=== PATIENT | female | born 1975 | race Two or more races ===

== ENCOUNTER 2022-10-23 14:15 | Emergency (ER) | payer OTHER ==
[2022-10-23 14:45] VITALS: BP 151/77; PULSE 119; RESP 20; TEMP 100.8; BMI 25.6
[2022-10-23] MEDS ORDERED: ACETAMINOPHEN 500 MG TABLET (FP) PO ONE (14:58)
[2022-10-23] MEDS ORDERED: guaiFENesin 200 MG/10 ML 10 ML UNIT-DOSE CUPS PO ONE (15:10)
[2022-10-23] MEDS ORDERED: guaiFENesin/D-METHORPHAN HB 10 ML UNIT-DOSE CUPS ONE (15:15)
== END 2022-10-23 17:00 | disposition home or self-care (01) ==
LOC: JER 14:15
DX: J20.9 Acute bronchitis, unspecified (principal); R50.9 Fever, unspecified
CPT/HCPCS: 0241U-QW; 71046-TC-FY; 99284-25

== ENCOUNTER 2023-12-19 08:34 | Emergency (ER) | payer OTHER ==
[2023-12-19 08:43] VITALS: RESP 17; BMI 22.6
[2023-12-19] MEDS ORDERED: SODIUM CHLORIDE 0.9% 500 ML INFUS.BAG IV ONE (09:00)
[2023-12-19] MEDS ORDERED: ONDANSETRON 4 MG/2 ML VIAL IVPUSH ONE (09:00)
[2023-12-19] MEDS ORDERED: ACETAMINOPHEN 1000 MG/100 ML BAG IVPB ONE (09:00)
[2023-12-19] MEDS ORDERED: ACETAMINOPHEN INJECTION 100 ML IVPB ONE (09:06)
[2023-12-19] MEDS ORDERED: ONDANSETRON 4 MG/2 ML VIAL ONE (09:06)
[2023-12-19 09:53] LABS: BASO % 0.4 % (0-2.0); EOS % 0.4 % (0-4.5); HEMATOCRIT 41.7 % (32.4-45.2); HEMOGLOBIN 13.8 GM/dL (10.7-15.3); LYMPH % 11.2 % (8-40); MCH 28.1 pg (25.7-33.7); MCHC 33.1 g/dl (32.0-36.0); MEAN CELL VOLUME 84.7 fl (80-96); MEAN PLT VOLUME 8.4 fl (7.5-11.1); MONO % 4.8 % (3.8-10.2); NEUT % 83.2 % (42.8-82.8); PLATELET COUNT 345 10^3/uL (134-434); RBC 4.92 M/mm3 (3.60-5.2); RDW 13.2 % (11.6-15.6); WHITE BLOOD COUNT 14.9 K/mm3 (4.0-10.0)
[2023-12-19 10:02] LABS: EPI CELLS 25 /uL (0-25.1); HYALINE CASTS 1 /uL (0-3.1); URINE APPEARANCE CLEAR; URINE BACTERIA 297 /uL (0-1359); URINE BILIRUBIN NEGATIVE (NEGATIVE); URINE COLOR YELLOW; URINE GLUCOSE (UA) 3+ (NEGATIVE); URINE KETONE NEGATIVE (NEGATIVE); URINE LEUK ESTERASE TRACE (NEGATIVE); URINE NITRITE NEGATIVE (NEGATIVE); URINE PROTEIN NEGATIVE (NEGATIVE); URINE RBC 13 /uL (0-23.9); URINE UROBILINOGEN 0.2 mg/dL (0.2-1.0); URINE WBC 90 /uL (0-25.8)
[2023-12-19 10:05] LABS: HCG,QUALITATIVE URINE Negative
[2023-12-19 10:07] LABS: INR 1.04 (0.83-1.09); PROTHROMBIN TIME (PATIENT) 12.1 SEC (9.7-13.0)
[2023-12-19 10:17] LABS: POTASSIUM 3.8 mmol/L (3.5-5.1)
[2023-12-19 10:19] LABS: CALCIUM 9.4 mg/dL (8.5-10.1)
[2023-12-19 10:20] LABS: ALBUMIN 3.7 g/dl (3.4-5.0); BLOOD UREA NITROGEN 13.4 mg/dL (7-18)
[2023-12-19 10:23] LABS: CREATININE 0.5 mg/dL (0.55-1.3)
[2023-12-19 10:24] LABS: BILIRUBIN,TOTAL 1.9 mg/dL (0.2-1); TOT PROT 7.8 g/dl (6.4-8.2)
[2023-12-19] MEDS ORDERED: KETOROLAC TROMETHAMINE 30 MG/1 ML VIAL IVPUSH ONE (10:50)
[2023-12-19] MEDS ORDERED: KETOROLAC TROMETHAMINE 30 MG/1 ML VIAL ONE (10:55)
[2023-12-19] MEDS ORDERED: ACETAMINOPHEN 325 MG TABLET (FP) PO ONE (14:49)
[2023-12-19] MEDS ORDERED: METOCLOPRAMIDE HCL INJECTION 10 MG/2 ML VIAL IVPB ONE (14:49)
[2023-12-19] MEDS ORDERED: METOCLOPRAMIDE HCL INJECTION 10 MG/2 ML VIAL ONE (15:22)
[2023-12-19] MEDS ORDERED: ACETAMINOPHEN 325 MG TABLET (FP) ONE (15:24)
[2023-12-19 15:57] VITALS: BP 104/54; PULSE 113; TEMP 100.7
== END 2023-12-19 17:16 | disposition home or self-care (01) ==
LOC: JER 08:34
PROC: 3E033NZ Introduction of Analgesics, Hypnotics, Sedatives into Peripheral Vein, Percutaneous Approach (ICD-10-PCS; principal; 2023-12-19)
PROC: 3E0333Z Introduction of Anti-inflammatory into Peripheral Vein, Percutaneous Approach (ICD-10-PCS; 2023-12-19)
PROC: 3E033GC Introduction of Other Therapeutic Substance into Peripheral Vein, Percutaneous Approach (ICD-10-PCS; 2023-12-19)
PROC: 3E033GC Introduction of Other Therapeutic Substance into Peripheral Vein, Percutaneous Approach (ICD-10-PCS; 2023-12-19)
DX: K52.9 Noninfective gastroenteritis and colitis, unspecified (principal); R10.31 Right lower quadrant pain; R11.2 Nausea with vomiting, unspecified; R50.9 Fever, unspecified; R63.0 Anorexia; R42 Dizziness and giddiness; D72.829 Elevated white blood cell count, unspecified; N83.201 Unspecified ovarian cyst, right side; R09.89 Other specified symptoms and signs involving the circulatory and respiratory systems; Z20.822 Contact with and (suspected) exposure to COVID-19
CPT/HCPCS: 0241U-QW; 36415; 71046-TC-FY; 74177-TC; 76830-TC; 80053; 81003; 83690; 84703; 85025; 85610; 86850; 86900; 86901; 87086; 87651; 99285-25; Q9967